=== PATIENT | female | born 1945 | race Caucasian/White ===

== ENCOUNTER 2018-02-22 10:58 | Emergency (ER) | payer BC ==
[~2018-02-22] VITALS: Ht 160 cm; Wt 100.0 kg
[2018-02-22] MEDS ORDERED: FLUT1AER IH (11:04)
[2018-02-22] MEDS ORDERED: ATOR10TA69 PO (11:04)
[2018-02-22] MEDS ORDERED: ESOM20CA PO (11:04)
[2018-02-22] MEDS ORDERED: LEVO150T8 PO (11:04)
[2018-02-22] MEDS ORDERED: ATROV IH (11:04)
[2018-02-22] MEDS ORDERED: LOSA100T14 PO (11:04)
[2018-02-22] MEDS ORDERED: ESCI10TA54 PO (11:04)
[2018-02-22] MEDS ORDERED: MECLIZINE 25MG TABLET PO ONE (12:45)
[2018-02-22 12:48] LABS: BASOPHILS % 0.7 % (0.0-2.0); EOSINOPHILS % 1.6 % (0.0-5.0); HEMATOCRIT. 39.6 % (36.0-48.0); HEMOGLOBIN. 12.8 g/dL (12.0-16.0); LYMPHOCYTES % 28.6 % (20.0-50.0); MEAN CORPUSCULAR HEMOGLOBIN 26.5 pg (28.0-32.0); MEAN CORPUSCULAR VOLUME 82.2 fL (81.0-99.0); MEAN PLATELET VOLUME 8.5 fl (7.4-10.4); MONOCYTES % 9.3 % (2.0-8.0); NEUTROPHILS % 59.8 % (40.0-76.0); PLATELET 303 x1000/uL (130-400); RED BLOOD CELL COUNT 4.82 mill/uL (4.2-5.4); RED CELL DISTRIBUTION WIDTH 14.5 % (11.6-14.6)
[2018-02-22 12:49] LABS: CHLORIDE 106 mEq/L (98-107)
[2018-02-22 14:35] VITALS: BP 145/67
== END 2018-02-22 14:50 | disposition home or self-care (01) ==
LOC: ER 10:58
DX: R42 Dizziness and giddiness (principal); M79.605 Pain in left leg; I10 Essential (primary) hypertension; E78.00 Pure hypercholesterolemia, unspecified; E03.9 Hypothyroidism, unspecified; J45.909 Unspecified asthma, uncomplicated; Z88.1 Allergy status to other antibiotic agents
CPT/HCPCS: 36415; 70450; 80053; 83735; 84484; 85025; 93005; 99285; J8597